=== PATIENT | female | born 1950 | race Caucasian/White ===

== ENCOUNTER → 2017-01-11 | Outpatient (CLI) | payer OTHER, BC ==
[~2017-01-11] MED LIST: ASPI81TA28 PO; ATEN-173 PO; EFFSR75 PO; MELA1TAB5 PO; MULT-506 PO; SIMV40TA2 PO
--- NOTE | 2017-01-11 12:43 | MAMMOGRAPHY REPORT ---
BILATERAL DIGITAL SCREENING MAMMOGRAM WITH CAD: 01/11/2017 CLINICAL HISTORY: Routine screening. TECHNIQUE: Bilateral CC and MLO views were obtained. Current study was also evaluated with a Computer Aided Detection (CAD) system. COMPARISON: Comparison is made to exams dated: 01/06/2016 mammogram, 01/04/2015 mammogram, 12/31/2013 ma mmogram, 12/30/2012 mammogram, 12/28/2011 mammogram, and 12/26/2010 mammogram - [facility] nter. BREAST COMPOSITION: There are scattered areas of fibroglandular density in both breasts. FINDINGS: There are scattered benign-appearing round and ulises like calcifications in the breasts. No suspicious mass, architectural distortion or cluster of suspicious microcalcifications is seen. IMPRESSION: ACR BI-RADS CATEGORY 1: NEGATIVE There is no mammographic evidence of malignancy. A 1 year screening mammogram is recommended. The pa tient will receive written notification of the results. Approximately 10% of breast cancers are not detected with mammography. A negative mammographic report should not delay biopsy if a clinically suggestive mass is present. Loreto Hitchcock M.D. ay/:01/11/2017 09:37:49 Necktie Maker: Rosalia SALAZAR(Jennifer)(Rianna), [facility] letter sent: Normal 1/2 BI-RADS Code: ACR BI-RADS Category 1: Negative
== END | disposition home or self-care (01) ==
LOC: C.MAMM 08:59
PROVIDERS: ATTEND Family Medicine
DX: Z12.31 Encounter for screening mammogram for malignant neoplasm of breast (principal)

== ENCOUNTER 2017-06-01 08:50 | Inpatient (IN) | payer OTHER, BC ==
[2017-05-04 09:44] VITALS: Ht 165.1 cm; Wt 86.5 kg
--- NOTE | 2017-05-04 10:20 | PAT Medication Instructions ---
Service Date May 04, 2017. Current Home Medication List Ascorbic Acid (Vitamin C), 500 MG PO QAM Aspirin (Aspirin Ec), 81 MG PO QAM Atenolol (Tenormin), 25 MG PO QPM Docusate Sodium (Docusate Sodium), 2 CAP PO QPM Hydrocodone/Acetaminophen 5MG/325MG (Mora 5MG/325MG), 1 TABLET PO Q4-6H PRN for Pain Melatonin ( Melatonin), 1 TAB PO HS Multivitamin (Multivitamin), 1 TAB PO QAM Naproxen (Aleve), 220 MG PO BID Simvastatin (Zocor), 40 MG PO HS Venlafaxine Hcl (Effexor Extended Rel), 75 MG PO QPM Vitamin E (Alph-E), 400 UNITS PO QAM [Osteo Matrix], 2 TAB PO QAM Medication Instructions For Your Scheduled Surgery - Hold the following medications 2 weeks prior to surgery: Vitamin E (Alph-E), 400 UNITS PO QAM [Osteo Matrix], 2 TAB PO QAM - Hold the following medications 7 days prior to surgery per surgeon's instructions: Naproxen (Aleve), 220 MG PO BID - Hold the following medications the morning of surgery: Ascorbic Acid (Vitamin C), 500 MG PO QAM Multivitamin (Multivitamin), 1 TAB PO QAM - Take the following medications the morning of surgery with a sip of water OTHERWISE NOTHING TO EAT OR DRINK AFTER MIDNIGHT: Hydrocodone/Acetaminophen 5MG/325MG (Mora 5MG/325MG), 1 TABLET PO Q4-6H PRN for Pain (may take if needed up to 4 hours prior to surgery) Aspirin (Aspirin Ec), 81 MG PO QAM - Take the following medications as scheduled the night before surgery: Melatonin ( Melatonin), 1 TAB PO HS Atenolol (Tenormin), 25 MG PO QPM Simvastatin (Zocor), 40 MG PO HS Venlafaxine Hcl (Effexor Extended Rel), 75 MG PO QPM Docusate Sodium (Docusate Sodium), 2 CAP PO QPM Hydrocodone/Acetaminophen 5MG/325MG (Mora 5MG/325MG), 1 TABLET PO Q4-6H PRN for Pain If you have any questions please call us at [phone] or [phone] or [phone]
--- NOTE | 2017-05-04 10:56 | DIAGNOSTIC IMAGING REPORT ---
TWO VIEW CHEST CLINICAL HISTORY: Preoperative examination. FINDINGS: PA and lateral chest radiographs are compared to study dated 03/04/2015. The cardiomediastinal silhouette is unremarkable. There is atherosclerotic calcification of the thoracic aorta. Tiny calcified granulomas are noted in the right lung base. The lungs and pleural spaces are otherwise clear. There is no pneumothorax. The skeletal structures appear osteopenic. The bony thorax appears intact. IMPRESSION: No active disease in the chest. Electronically signed by: Epi Ackerman M.D. 05/04/2017 10:55 AM Dictated Date/Time: 05/04/2017 10:54 AM
[2017-05-04 11:28] LABS: BASO % 0.5 %; BASO ABS # 0.03 K/uL (0-0.2); EOS % 5.4 %; HEMATOCRIT 42.2 % (37-47); HEMOGLOBIN 13.7 g/dL (12.0-16.0); IG# 0.01 K/uL (0.00-0.02); LYMPH % 29.4 %; LYMPH ABS # 1.63 K/uL (1.2-3.4); MEAN CELL VOLUME 90.9 fL (80-100); MEAN CORPUSCULAR HEMOGLOBIN 29.5 pg (25-34); MEAN CORPUSCULAR HGB CONC 32.5 g/dl (32-36); MEAN PLATELET VOLUME 9.7 fL (7.4-10.4); MONO % 10.1 %; MONO ABS # 0.56 K/uL (0.11-0.59); NEUT % 54.4 %; NEUT ABS # 3.02 K/uL (1.4-6.5); PLATELET COUNT 336 K/uL (130-400); RED CELL DISTRIBUTION WIDTH CV 14.6 % (11.5-14.5); RED CELL DISTRIBUTION WIDTH SD 48.9 fL (36.4-46.3); WHITE BLOOD COUNT 5.55 K/uL (4.8-10.8)
[2017-05-04 11:33] LABS: INR 0.9 (0.9-1.1); PTT PATIENT 24.1 SECONDS (21.0-31.0)
[2017-05-04 11:43] LABS: CALCIUM 9.6 mg/dl (8.5-10.1); CREATININE 0.72 mg/dl (0.60-1.20); POTASSIUM 4.2 mmol/L (3.5-5.1)
[2017-05-04 12:03] LABS: HEMOGLOBIN A1C 5.6 % (4.5-5.6)
--- NOTE | 2017-05-30 11:06 | History and Physical ---
History & Physical Date May 30, 2017. Chief Complaint right hip pain History of Present Illness The patient is a 67 year old female with complaints of right hip and groin pain. She had been treated conservatively for hip DJD but failed conservative management of injections, PT, NSAIDs. She is now being set up for a right hip replacement. Past Medical/Surgical History Medical Problems: (1) Anxiety (2) Kidney stone (3) HTN (4) Hypercholesterolemia (5) Back pain (6) Obesity Past Surgical hx: Pilonidal cyst, back surgery Social hx: Denies tobacco use Allergies Coded Allergies: Adhesives (Verified Adverse Reaction, Intermediate, REDNESS WITH BANDAIDS/ TAPE, 05/29/17) Hydromorphone (Verified Adverse Reaction, Intermediate, DELIRIUM,AMNESIA, 05/04/17) Tramadol (Verified Adverse Reaction, Intermediate, general malaise,NAUSEA VOMITING, 05/04/17) Home Medications Scheduled Ascorbic Acid (Vitamin C), 500 MG PO QAM Aspirin (Aspirin Ec), 81 MG PO QAM Atenolol (Tenormin), 25 MG PO QPM Docusate Sodium (Docusate Sodium), 2 CAP PO QPM Melatonin (Kp Melatonin), 1 TAB PO HS Multivitamin (Multivitamin), 1 TAB PO QAM Naproxen (Aleve), 220 MG PO BID Simvastatin (Zocor), 40 MG PO HS Venlafaxine Hcl (Effexor Extended Rel), 75 MG PO QPM Vitamin E (Alph-E), 400 UNITS PO QAM [Osteo Matrix], 2 TAB PO QAM Scheduled PRN Hydrocodone/Acetaminophen 5MG/325MG ([place] 5MG/325MG), 1 TABLET PO Q4-6H PRN for Pain Physical Examination Skin: warm/dry, no rash Eyes: normal inspection ENT: normal ENT inspection Head: normocephalic, atraumatic Neck: supple, no adenopathy, trachea midline Respiratory/Chest: lungs clear, normal breath sounds, no respiratory distress Cardiovascular: regular rate, rhythm Abdomen / GI: normal bowel sounds, non tender Extremities: + pertinent finding (Right hip: Antalgic right gait. Tender right groin. Painful PROM right hip. + JEREMÍAS right hip. Limited internal/external rotation.) Neurologic/Psych: no motor/sensory deficits, alert, oriented x 3 Diagnosis Right hip osteoarthritis Plan of Treatment Recommend a right hip total hip arthroplasty. All potential risks, benefits, complications, alternatives, and rehab have been discussed and the patient wishes to proceed. She will be scheduled for 06.01.17 with plan for ASA 81 mg BID x 30 days for DVT prophylaxis.
[2017-06-01] VITALS (8 sets, daily range): BP systolic 111–160; BP diastolic 73–90; PULSE 79–96; TEMP 36.4–36.8; O2SAT 93–97
[~2017-06-01] VITALS: Ht 165.1 cm; Wt 86.5 kg
[~2017-06-01 08:50] MED LIST changes: +ACETAMINOPHEN 500 MG TAB PO SCH; +ASCO1CAP3 PO; +BUPIVACAINE 0.5 % 5 MG/1 ML PF 10ML VIAL ONE; +CEFAZOLIN 2000MG IV PUSH 10 ML IV SCH; +CeleBREX 200 MG CAP PO SCH; +DEXAMETHASONE 4 MG TAB PO SCH; +DOCU100C31 PO; +FAMOTIDINE 20 MG TAB PO SCH; +GABAPENTIN 300 MG CAP PO SCH; +HYDR-5688 PO; +LACTATED RINGER'S 1000ML 1,000 ML IV SCH; +LACTATED RINGER'S 1000ML 500 ML IV SCH; +LACTATED RINGER'S 1000ML IV SCH; +METOCLOPRAMIDE HCL 10 MG TAB PO SCH; +NAPR1TAB9 PO; +OSTEO MATRIX PO; +ROPIVACAINE 5MG/ML 30 ML 150 MG, BUPIVACAINE 0.5% MPF INJ 30 ML, EpINEphrine HCL INJ 0.... INFIL SCH; +VITA400C28 PO
[2017-06-01] MEDS ORDERED: ONDANSETRON INJ 2 MG/ML 2 ML VIAL IV PRN ×2 (09:30→14:15)
[2017-06-01] MEDS ORDERED: EpHEDrine SULFATE INJ 50 MG/ML AMP IV PRN (09:30)
[2017-06-01] MEDS ORDERED: PHENYLEPHRINE 100MCG/ML 5ML SYR IV PRN (09:30)
[2017-06-01] MEDS ORDERED: ATROPINE SULFATE 0.1 MG/ML 5ML SYR IV PRN (09:30)
[2017-06-01] MEDS ORDERED: HYDROmorphone INJ 2 MG/ML SYR/VIAL IV PRN (09:30)
[2017-06-01] MEDS ORDERED: FENTANYL CITRATE INJ 50 MCG/1 ML 2 ML VIAL IV PRN (09:30)
[2017-06-01] MEDS ORDERED: MIDAZOLAM HCL 1 MG/ML 2ML VIAL ONE ×3 (10:15→12:53)
--- NOTE | 2017-06-01 10:32 | History & Physical Bridge Note ---
H&P Re-Evaluation Bridge Note: I have examined the patient, reviewed the History & Physical and in the interval since the performance of the History & Physical I have noted the following changes of clinical significance: No changes noted
[2017-06-01] MEDS: TRANEXAMIC ACID INJ 1,000 MG in SYRINGE 0 ML IV SCH ×2 (10:44→17:57)
[2017-06-01] MEDS ORDERED: BACITRACIN 50000 UNIT VIAL ONE (11:11)
[2017-06-01] MEDS: CEFAZOLIN 2000MG IV PUSH 10 ML IV SCH ×2 (11:30→11:33)
[2017-06-01] MEDS ORDERED: ORTHO JOINT ANESTHETIC ONE ×2 (11:49→11:56)
[2017-06-01] MEDS ORDERED: LIDOCAINE HCL 2% 2 ML VIAL (20MG/ML) ONE (11:51)
[2017-06-01] MEDS ORDERED: PROPOFOL IV EMULSION 10 MG/ML 20 ML VIAL IV ONE ×2 (11:51→13:30)
[2017-06-01] MEDS ORDERED: PHENYLEPHRINE 100MCG/ML 5ML SYR ONE (11:51)
[2017-06-01] MEDS ORDERED: POVIDONE-IODINE OP SOLN 30 ML BTL ONE (11:56)
[2017-06-01] MEDS ORDERED: KETAMINE HCL INJ 50 MG/ML 10 ML VIAL ONE (13:25)
[2017-06-01] MEDS ORDERED: SODIUM CHLORIDE 0.9% INJ 10 ML VIAL ONE (13:25)
[2017-06-01] MEDS ORDERED: FENTANYL CITRATE INJ 50 MCG/1 ML 2 ML VIAL ONE (13:25)
--- NOTE | 2017-06-01 14:03 | [facility] Post Operative Brief Note ---
Immediate Operative Summary Operative Date Jun 01, 2017. Pre-Operative Diagnosis Right hip Degenerative Joint Disease, Right Hip osteoarthritis Post-Operative Diagnosis Right hip Degenerative Joint Disease, Right Hip osteoarthritis Procedure(s) Performed Right Total Hip Arthroplasty- Press Fit Oziel Accolaenrique Surgeon Dr. Dahl Pediatric Surgeon Surgeon(s) Yoel Orellana PA-C, Rivera Narayanan PA-C Estimated Blood Loss 60ml Findings Consistent with Post-Op Diagnosis Specimens A) Right femoral head- bone & tissue Drains HV x 2 Anesthesia Type Spinal MAC (and Intraarticular OrthoMix) Complication(s) none Disposition Accompanied Pt To Recover: no Disposition: Recovery Room / PACU
[2017-06-01] MEDS ORDERED: ONDA8TAB6 PO (14:14)
[2017-06-01] MEDS ORDERED: ASPEC325 PO (14:14)
[2017-06-01] MEDS ORDERED: CLB200 PO (14:14)
[2017-06-01] MEDS ORDERED: OXYC1TAB3 PO (14:14)
[2017-06-01] MEDS ORDERED: ACET-24 PO (14:14)
[2017-06-01] MEDS ORDERED: MoRPHine SULFATE 2 MG/ML CARP IV PRN (14:15)
[2017-06-01] MEDS ORDERED: BISACODYL 10 MG SUPP PR PRN (14:15)
[2017-06-01] MEDS ORDERED: ZOLPIDEM TARTRATE 5 MG TAB PO PRN (14:15)
[2017-06-01] MEDS ORDERED: SOD PHOSPHATE/SOD BIPHOSPHATE ENEMA 132 ML BTL PR PRN (14:15)
[2017-06-01] MEDS ORDERED: MAGNESIUM HYDROXIDE SUSP 30 ML UDC PO PRN (14:15)
[2017-06-01] MEDS ORDERED: ALUMINUM/MAGNESIUM/SIMETH (MAALOX MAX) 30 ML UDC PO PRN (14:15)
--- NOTE | 2017-06-01 14:16 | Discharge Instructions ---
Discharge Instructions Date of Service Jun 01, 2017. Admission Reason for Admission: Right Hip Osteoarthritis Discharge Discharge Diagnosis / Problem: right hip osteoarthritis Discharge Goals Goal(s): Decrease discomfort, Improve function Activity Recommendations Activity Limitations: per Instructions/Follow-up section Weightbearing Status: Right weightbearing (as tolerated) . Instructions / Follow-Up Instructions / Follow-Up ACTIVITY RECOMMENDATIONS: SELF CARE INSTRUCTIONS AFTER TOTAL HIP REPLACEMENT Until the incision and soft tissues around your hip have healed, there is a possibility that the hip prosthesis could dislocate. A. Observe the following precautions to prevent dislocation: 1. Don't bend your hip greater than 90 degrees. 2. Avoid crossing your legs or ankles while standing or lying. 3. Sit with your feet placed 6 inches apart. 4. When sitting, keep your knees below your hips. Sit on a firm surface, avoid deep, soft chairs and couches. Use an elevated toilet seat in the bathroom. 5. Don't bend over at the waist. Use a long handled shoehorn and a sock aid to help you put on your shoes and socks. A cat and dog bather can help you picker packer objects that are too high or too low to reach. 6. Keep car riding to a minimum for at least one month after surgery. B. Your balance may be shaky for a while. Use crutches or a walker until directed by your doctor. C. Use hand rails when walking on stairs. D. Wear low heeled shoes with non-slip soles. E. Be sure that your floors are free of things that could trip you - throw rugs , electrical cords, small objects. Avoid wet and waxed floors, especially with crutches and canes. F. Try to walk several times a day with rest periods between. G. Continue with all the exercises taught to you in the hospital. Again, make walking a part of your daily routine. H. It is okay to shower if minimal to no drainage from incision. No baths. Do not soak wound. I. Physical Therapy as instructed by your Physician. Wendy Jacob- This is a large adhesive bandage that contains silver ions. This helps your incision heal by fighting off bacteria and protecting it from the outside environment. You are permitted to shower with this dressing. This will remain on your incision for 7 days and then should be removed. Some visible blood or drainage through the dressing window is normal. If there is significant drainage or leaking noted before the 7 days notify your doctor's office immediately. Once removed, keep incision clean and dry. If there is any drainage or redness noted, please call your surgeon. SPECIAL CARE INSTRUCTIONS: VERY IMPORTANT TO READ AND REVIEW A. You may still be at risk for phlebitis and blood clots. 1. Wear surgical stockings (GALLO hose) for one month, 20 hours daily, after surgery to improve circulation and reduce swelling. 2. Take Aspirin (blood thinning medications), as directed by your doctor. 3. Have a pro-time (blood test) drawn according to your doctor's instructions. B. We encourage and will assist you in choosing a home-health agency of your choice. Home health nurses and therapists will monitor your temperature, wound healing and progress in exercise and walking. Home health nurses may also draw the blood for the pro-time test. They may instruct you in decreasing or increasing the amount of Coumadin you take. C. You must take antibiotics before having dental work, bladder, bowel and other surgery. Your doctor will provide you with a permanent card to carry describing precautions. D. Call [facility] if you have a temperature of 101 or greater, redness or swelling around the incision, cloudy drainage from incision, or sudden increase in pain in your hip, not relieved by your regular pain medication. E. Please call the office at if you have any concerns or questions about your operation or recovery. FOLLOW UP VISIT: If appointment is not already scheduled: Please call [facility] to make a follow-up appointment for one month after your surgery at . Current Hospital Diet Patient's current hospital diet: Regular Diet Discharge Diet Recommended Diet: Regular Diet Procedures Procedures Performed: Right Total Hip Arthroplasty- Press Fit [place] Accolade Pending Studies Studies pending at discharge: no Laboratory Results Hemoglobin A1c Test 05/04/17 10:18 Range/Units Estimated Average Glucose 114 mg/dl Hemoglobin A1c 5.6 4.5-5.6 % Medical Emergencies . Who to Call and When: Medical Emergencies: If at any time you feel your situation is an emergency, please call 911 immediately. . Non-Emergent Contact Non-Emergency issues call your: Surgeon Call Non-Emergent contact if: temperature is above 101, your pain is not controlled, your pain is worsening, wound has increased drainage, wound has increased redness . "Provider Documentation" section prepared by Yoel Orellana. . VTE Core Measure Inpt VTE Proph given/why not?: Other Anticoagulation, T.E.D. Stockings, SCD's
--- NOTE | 2017-06-01 14:59 | DIAGNOSTIC IMAGING REPORT ---
R PELVIS/UNILATERAL HIP 1 VIEW CLINICAL HISTORY: IN PACU - A/P PELVIS and LATERAL HIP INCLUDING ALL OF IMPLANT COMPARISON: None. DISCUSSION: Anatomic alignment status post total right hip arthroplasty. Good contact between prosthetic and underlying bone. No evidence for acetabular protrusion. Expected soft tissue postoperative change. IMPRESSION: Anatomic alignment status post total right hip arthroplasty. The above report was generated using voice recognition software. It may contain grammatical, syntax or spelling errors. Electronically signed by: Patric Comer M.D. 06/01/2017 2:58 PM Dictated Date/Time: 06/01/2017 2:58 PM
--- NOTE | 2017-06-01 15:14 | OPERATIVE REPORT ---
DATE OF OPERATION: 06/01/2017 PREOPERATIVE DIAGNOSES: 1. Right hip degenerative joint disease. 2. Right hip osteoarthritis. POSTOPERATIVE DIAGNOSES: Same. PROCEDURE: Right total hip arthroplasty using a Calypso Press-Fit size 5 Accolade II stem with a Trident PSL 56-mm acetabular liner with 36-mm Biolox +0 head, a Trident X3 36-mm with 10-degree liner polyethylene and acetabular liner screws x2. SURGEON: Dr. Isaías Dahl. FORENSIC PHOTOGRAPHER: Yoel Orellana PA-C and Rivera Narayanan PA-C, who were present for patient positioning, sterile prep and drape, management of retractors and instruments. They were present through the critical portions of the case including wound closure, application of sterile dressing and transport of the patient to recovery. ANESTHESIA: Spinal, monitored anesthesia care with intra-articular Orthomix injection. SPECIMENS: Bone and tissue. DRAINS: Hemovac x2. COMPLICATIONS: None. BLOOD LOSS: 60 mL. PERTINENT HISTORY: This is a 67-year-old female who had chronic progressive and worsening right hip pain with loss of function and mobility over the last several years. She had attempted and failed conservative management including the use of an assistive device, intraarticular steroid injections, anti-inflammatories, physician directed home exercises, physical therapy and shoe wear modification. Radiographs demonstrated complete loss of joint space with marginal osteophytes, subchondral sclerosis and subchondral cyst formation. The patient was scheduled for surgery as indicated. All potential risks, benefits, complications, alternatives, rehab, potential for incomplete relief of symptoms, need for further surgery, DVT, PE, , persistent pain, swelling, scarring, weakness, neurovascular injury, wound complications and bone fracture were discussed with the patient. The patient decided to proceed with the procedure as indicated. DESCRIPTION OF PROCEDURE: The patient was taken to the Operating Suite and placed supine on the Operating Room table after identification of the consent and identification of the proper operative site the patient was sedated. The patient had previously received a spinal epidural anesthetic. The patient was then placed in the left lateral decubitus position with the affected side up and Stulberg positioning device then used to maintain lateral position of the patient. All bony prominences were properly padded and protected. Axillary roll was placed as standard and the leg lengths were determined to be essentially equal and then the right hip was then sterilely prepped and draped in the usual fashion. 10-blade scalpel incision was made laterally over the greater trochanter. The incision was deepened through the subcutaneous tissue and meticulous hemostasis with electrocautery. Further deepening of the wound through the layer of the fascia was performed with electrocautery and iliotibial band was then incised with electrocautery. Next, Charnley retractor was placed bother anteriorly and posteriorly at the level of the gluteus tendon. Next, electrocautery was used to make an incision in the vastus lateralis and then a sweep was made toward the anterior aspect of the patient along the course of the femoral neck and head. Abductor split was then completed. The gluteus minimus and capsule were then incised and then soft tissue was dissected anteriorly. Next as the soft tissue was dissected anteriorly the lesser trochanter was clearly identified and hip was dislocated with relative ease. Hypertrophic osteophytes were noted circumferentially. The hip joint was noted to be noticeably tight. Next the sagittal saw was used to resect the proximal portion of the femoral neck and head approximately one fingerbreadth proximal to the lesser trochanter. Head was then removed and next the labrum was excised from the acetabulum with a 22 blade scalpel and long forceps. Next the wound was irrigated with pulsatile lavage and the pulvinar was then excised from the acetabulum. Appropriate retractors were placed anteriorly superiorly and posteriorly. Next initial acetabular reamer was placed 46 mm medialized to the medial wall and then sequential reaming was performed to size 56 mm. Trial cage was then placed and noted to be stable with excellent fit. Next the wound was irrigated with pulsatile lavage with bacitracin additive and 56 mm Calypso trident PSL cup was impacted and then two 30 mm screws were used to stabilize the acetabular shell. Next X3 poly 36 mm was impacted into the shell. Lap sponge was placed over to protect it. Next, attention was turned toward the proximal femur. Box osteotome was used to resect proximal portion of bone followed by first pass small reamer. Next, sequential broaching was performed up to size 5 and the 5 trial was placed followed by +0 36 mm trial head. Next, it was reduced and had excellent fit and feel with minimal shuck and excellent stability in all planes and range of motion. Leg lengths were restored and next all trial implants were removed. The wound was copiously irrigated with pulsatile lavage and size 5 Accolade TMZF x 132 degree final stem was impacted. Next, Biolox ceramic 36 mm head +0 neck was impacted. The construct was reduced. Range of motion was performed and noted to be completely stable with excellent range of motion, improved to greater degree than prior to surgery. Dilute, sterile Betadine soak was performed for 3 minutes. Two 10 Brazilian single Hemovac drains were placed exiting anterolaterally. The wound was irrigated with a pulsatile lavage. Next a #5 Fiberwire suture was used to close the capsule and gluteus minimum via two small bone tunnels made with a 2.5 mm drill bit in the greater trochanter. After #5 Fiberwire closure was completed and noted to be stable, then 10 Brazilian drains were placed followed by closure of the vastus lateralis and the gluteus medius. This was closed with #1 Vicryl sutures. Next, the iliotibial band was closed using interrupted [id number] #1 Vicryl sutures. Next, final irrigation was performed with pulsatile lavage and dermis was closed using buried interrupted 2-0 Vicryl suture. The skin was closed with skin micha. Sterile compressive dressing was applied. The patient was then placed supine and taken to recovery in stable condition. I attest to the content of the Intraoperative Record and any orders documented therein. Any exceptions are noted below. EDINSON
--- NOTE | 2017-06-01 16:15 | Anesthesiology Progress Note ---
Anesthesia Post Op Note Date & Time Jun 01, 2017 at 16:15 Vital Signs Pain Intensity: 0 Vital Signs Past 12 Hours Date Time Temp Pulse Resp B/P (MAP) Pulse Ox O2 Delivery O2 Flow Rate FiO2 06/01/17 16:00 102/58 06/01/17 15:59 82 18 97 06/01/17 15:59 82 18 06/01/17 15:54 77 18 92 06/01/17 15:54 78 18 06/01/17 15:49 77 19 94 06/01/17 15:49 77 19 06/01/17 15:45 96/59 06/01/17 15:44 78 16 97 06/01/17 15:44 79 16 06/01/17 15:39 74 15 06/01/17 15:39 73 15 94 06/01/17 15:34 74 19 93 06/01/17 15:34 74 19 06/01/17 15:30 107/56 06/01/17 15:29 74 18 93 06/01/17 15:29 74 18 06/01/17 15:28 75 15 95 06/01/17 15:28 74 15 06/01/17 15:27 80 17 96 06/01/17 15:27 79 17 06/01/17 15:22 75 16 98 06/01/17 15:22 75 16 06/01/17 15:17 74 19 93 06/01/17 15:17 74 19 06/01/17 15:15 108/60 06/01/17 15:12 75 15 98 06/01/17 15:12 75 15 06/01/17 15:10 105/59 06/01/17 15:07 74 15 06/01/17 15:07 75 15 96 06/01/17 15:06 75 17 06/01/17 15:06 36.7 06/01/17 15:06 75 17 95 06/01/17 15:05 105/63 06/01/17 15:01 83 15 93 06/01/17 15:01 84 15 06/01/17 15:00 104/61 06/01/17 14:59 106/55 06/01/17 14:56 73 18 06/01/17 14:56 73 18 94 06/01/17 14:55 95/72 06/01/17 14:54 71 20 06/01/17 14:54 70 20 98 06/01/17 14:50 104/58 06/01/17 14:49 74 18 98 06/01/17 14:49 75 18 06/01/17 14:47 97/64 06/01/17 14:44 71 24 100 06/01/17 14:44 71 24 06/01/17 14:41 95/58 06/01/17 14:39 36.4 70 12 96/46 99 Nasal Cannula 2 06/01/17 14:39 75 15 96/46 96 06/01/17 14:39 76 15 06/01/17 09:10 36.8 79 16 160/79 96 Room Air Notes Mental Status: alert / awake / arousable, participated in evaluation Pt Amnestic to Procedure: Yes Nausea / Vomiting: adequately controlled Pain: adequately controlled Airway Patency, RR, SpO2: stable & adequate BP & HR: stable & adequate Hydration State: stable & adequate Anesthetic Complications: no major complications apparent
[2017-06-01] MEDS ORDERED: TRANEXAMIC ACID INJ 1,000 MG in SODIUM CHLORIDE 0.9% 100ML 100 ML IV ONE (18:00)
[2017-06-01] MEDS: D5W AND 1/2NSS + 20MEQ KCL 1,000 ML IV SCH (18:21)
[2017-06-01] MEDS: KETOROLAC TROMETHAMINE 15 MG/ML VIAL IV. SCH ×2 (18:22→23:27)
[2017-06-01] MEDS: CEFAZOLIN IV 2,000 MG in SYRINGE 0 ML IV SCH (20:40)
[2017-06-01] MEDS ORDERED: NON-FORMULARY MEDICATION (Melatonin (Kp Melatonin) 1 TAB) PO SCH (21:00)
[2017-06-01] MEDS ORDERED: DOCUSATE SODIUM 100 MG CAP PO SCH (21:00)
[2017-06-01] MEDS: SENNA 8.6 MG TAB PO SCH (21:17)
[2017-06-01] MEDS: ASPIRIN 325 MG ECTAB PO SCH (21:17)
[2017-06-01] MEDS: SIMVASTATIN 40 MG TAB PO SCH (21:17)
[2017-06-01] MEDS: VENLAFAXINE HCL XR 75 MG CAPXR PO SCH (21:17)
[2017-06-01] MEDS: DOCUSATE SODIUM 100 MG CAP PO SCH (21:17)
[2017-06-01] MEDS: ACETAMINOPHEN 500 MG TAB PO SCH (21:18)
[2017-06-01] MEDS: OXYCODONE HCL IR 5 MG TAB (IMMEDIATE RELEASE) PO PRN ×2 (21:27→22:18)
[2017-06-02] VITALS (8 sets, daily range): BP systolic 91–159; BP diastolic 48–83; PULSE 72–94; TEMP 36.4–36.9; O2SAT 94–98
[2017-06-02] MEDS: D5W AND 1/2NSS + 20MEQ KCL 1,000 ML IV SCH ×2 (02:41→12:51)
[2017-06-02] MEDS: CEFAZOLIN IV 2,000 MG in SYRINGE 0 ML IV SCH (03:56)
[2017-06-02] MEDS: OXYCODONE HCL IR 5 MG TAB (IMMEDIATE RELEASE) PO PRN ×2 (04:45→09:04)
[2017-06-02] MEDS: ACETAMINOPHEN 500 MG TAB PO SCH ×3 (05:39→21:21)
[2017-06-02] MEDS: KETOROLAC TROMETHAMINE 15 MG/ML VIAL IV. SCH ×2 (05:39→11:57)
[2017-06-02 06:04] LABS: BASO % 0.2 %; BASO ABS # 0.02 K/uL (0-0.2); HEMATOCRIT 32.8 % (37-47); HEMOGLOBIN 10.7 g/dL (12.0-16.0); IG# 0.03 K/uL (0.00-0.02); LYMPH % 13.8 %; LYMPH ABS # 1.54 K/uL (1.2-3.4); MEAN CELL VOLUME 89.9 fL (80-100); MEAN CORPUSCULAR HEMOGLOBIN 29.3 pg (25-34); MEAN CORPUSCULAR HGB CONC 32.6 g/dl (32-36); MONO % 10.1 %; MONO ABS # 1.13 K/uL (0.11-0.59); NEUT % 75.6 %; NEUT ABS # 8.43 K/uL (1.4-6.5); PLATELET COUNT 292 K/uL (130-400); RED CELL DISTRIBUTION WIDTH CV 14.1 % (11.5-14.5); RED CELL DISTRIBUTION WIDTH SD 46.4 fL (36.4-46.3); WHITE BLOOD COUNT 11.15 K/uL (4.8-10.8)
[2017-06-02 06:36] LABS: CALCIUM 8.4 mg/dl (8.5-10.1); CREATININE 0.67 mg/dl (0.60-1.20); POTASSIUM 4.1 mmol/L (3.5-5.1)
[2017-06-02] MEDS ORDERED: DEXAMETHASONE INJ 10 MG in SYRINGE 0 ML IV ONE (07:30)
[2017-06-02] MEDS: ASCORBIC ACID 500 MG TAB PO SCH (08:42)
[2017-06-02] MEDS: TOCOPHERYL, DL-ALPHA 100 INTERUNIT CAP PO SCH (08:42)
[2017-06-02] MEDS: ASPIRIN 325 MG ECTAB PO SCH ×3 (08:42→21:46)
[2017-06-02] MEDS: MULTIVITAMIN TAB PO SCH (08:42)
[2017-06-02] MEDS ORDERED: OSTEO MATRIX PO SCH (09:00)
--- NOTE | 2017-06-02 09:47 | Orthopedic Progress Note ---
Orthopedic Progress Note Date of Service Jun 02, 2017. Subjective Post OP Day: 1 Reports: feeling well, pain controlled w PO medications, Denies: chest pain, SOB , nausea / vomiting, light headedness, calf pain Objective calves soft nontender, N/V intact, hip located, capillary refill less than 2 sec., dressing C/D/I, A&O x3, toes mobile Date Time Temp Pulse Resp B/P (MAP) Pulse Ox O2 Delivery O2 Flow Rate FiO2 06/02/17 08:22 36.8 74 16 91/48 (62) 95 06/02/17 07:10 Room Air 06/02/17 03:27 36.9 78 18 121/69 (86) 97 Room Air 06/01/17 23:26 36.7 79 18 145/75 (98) 93 Room Air 06/01/17 23:15 Room Air 06/01/17 21:16 96 150/90 (110) 06/01/17 19:33 36.4 79 17 129/79 (96) 96 Room Air 06/01/17 18:00 36.6 87 16 158/81 (106) 97 Nasal Cannula 2.0 06/01/17 17:27 36.4 81 16 123/77 (92) 97 Nasal Cannula 3.0 06/01/17 17:00 36.6 18 121/74 (90) 97 Nasal Cannula 2.0 06/01/17 16:30 Nasal Cannula 2.0 06/01/17 16:30 Nasal Cannula 2.0 06/01/17 16:30 36.7 91 16 111/73 (86) 96 Nasal Cannula 2.0 06/01/17 16:25 36.9 06/01/17 16:21 83 17 94 06/01/17 16:21 84 17 06/01/17 16:16 83 18 92 06/01/17 16:16 83 18 06/01/17 16:15 98/60 06/01/17 16:11 81 20 93 06/01/17 16:11 81 20 06/01/17 16:06 80 13 94 06/01/17 16:06 80 13 06/01/17 16:01 87 14 96 06/01/17 16:01 88 14 06/01/17 16:00 102/58 06/01/17 15:59 82 18 97 06/01/17 15:59 82 18 06/01/17 15:54 77 18 92 06/01/17 15:54 78 18 06/01/17 15:49 77 19 94 06/01/17 15:49 77 19 06/01/17 15:45 96/59 06/01/17 15:44 78 16 97 06/01/17 15:44 79 16 06/01/17 15:39 74 15 06/01/17 15:39 73 15 94 06/01/17 15:34 74 19 93 06/01/17 15:34 74 19 06/01/17 15:30 107/56 06/01/17 15:29 74 18 93 06/01/17 15:29 74 18 06/01/17 15:28 75 15 95 06/01/17 15:28 74 15 06/01/17 15:27 80 17 96 06/01/17 15:27 79 17 06/01/17 15:22 75 16 98 06/01/17 15:22 75 16 06/01/17 15:17 74 19 93 06/01/17 15:17 74 19 06/01/17 15:15 108/60 06/01/17 15:12 75 15 98 06/01/17 15:12 75 15 06/01/17 15:10 105/59 06/01/17 15:07 74 15 06/01/17 15:07 75 15 96 06/01/17 15:06 75 17 06/01/17 15:06 36.7 06/01/17 15:06 75 17 95 06/01/17 15:05 105/63 06/01/17 15:01 83 15 93 06/01/17 15:01 84 15 06/01/17 15:00 104/61 06/01/17 14:59 106/55 06/01/17 14:56 73 18 06/01/17 14:56 73 18 94 06/01/17 14:55 95/72 06/01/17 14:54 71 20 06/01/17 14:54 70 20 98 06/01/17 14:50 104/58 06/01/17 14:49 74 18 98 06/01/17 14:49 75 18 06/01/17 14:47 97/64 06/01/17 14:44 71 24 100 06/01/17 14:44 71 24 06/01/17 14:41 95/58 06/01/17 14:39 36.4 70 12 96/46 99 Nasal Cannula 2 06/01/17 14:39 75 15 96/46 96 06/01/17 14:39 76 15 Laboratory Results 24 Hours: Test 06/02/17 05:27 White Blood Count 11.15 K/uL Red Blood Count 3.65 M/uL Hemoglobin 10.7 g/dL Hematocrit 32.8 % Mean Corpuscular Volume 89.9 fL Mean Corpuscular Hemoglobin 29.3 pg Mean Corpuscular Hemoglobin Concent 32.6 g/dl Platelet Count 292 K/uL Mean Platelet Volume 9.0 fL Neutrophils (%) (Auto) 75.6 % Lymphocytes (%) (Auto) 13.8 % Monocytes (%) (Auto) 10.1 % Eosinophils (%) (Auto) 0.0 % Basophils (%) (Auto) 0.2 % Neutrophils # (Auto) 8.43 K/uL Lymphocytes # (Auto) 1.54 K/uL Monocytes # (Auto) 1.13 K/uL Eosinophils # (Auto) 0.00 K/uL Basophils # (Auto) 0.02 K/uL Assessment & Plan Assessment: POD #1 right HERMELINDA Inhouse Planning Pain Management: Celebrex, PO Tylenol, Oxy IR DVT Prophylaxis: TEDs, SCDs, ASA Discharge Planning Discharge Planning: home with home health Pain Management: Celebrex, PO Tylenol, Oxy IR DVT Prophylaxis: TEDs, ASA Therapy: Physical Therapy
[2017-06-02] MEDS ORDERED: MELATONIN - ORDER AWAITING ACTION SCH (16:00)
[2017-06-02] MEDS ORDERED: MELATONIN 3 MG TAB PO SCH (21:00)
[2017-06-02] MEDS: CeleBREX 200 MG CAP PO SCH (21:20)
[2017-06-02] MEDS: SIMVASTATIN 40 MG TAB PO SCH (21:46)
[2017-06-02] MEDS: VENLAFAXINE HCL XR 75 MG CAPXR PO SCH (21:46)
[2017-06-02] MEDS: SENNA 8.6 MG TAB PO SCH (21:46)
[2017-06-02] MEDS: DOCUSATE SODIUM 100 MG CAP PO SCH (21:47)
[2017-06-03 05:36] VITALS: BP 144/82; PULSE 77; TEMP 36.8; O2SAT 97
[2017-06-03] MEDS: ACETAMINOPHEN 500 MG TAB PO SCH (06:02)
[2017-06-03] MEDS: ASCORBIC ACID 500 MG TAB PO SCH (07:28)
[2017-06-03] MEDS: TOCOPHERYL, DL-ALPHA 100 INTERUNIT CAP PO SCH (07:28)
[2017-06-03] MEDS: MULTIVITAMIN TAB PO SCH (07:29)
[2017-06-03] MEDS: CeleBREX 200 MG CAP PO SCH (08:01)
--- NOTE | 2017-06-03 08:32 | Orthopedic Progress Note ---
Orthopedic Progress Note Date of Service Jun 03, 2017. Subjective Post OP Day: 2 Reports: feeling well, pain controlled w PO medications, Denies: chest pain, SOB , nausea / vomiting, light headedness, calf pain Objective calves soft nontender, N/V intact, hip located, capillary refill less than 2 sec., dressing C/D/I (prevena), A&O x3, toes mobile Date Time Temp Pulse Resp B/P (MAP) Pulse Ox O2 Delivery O2 Flow Rate FiO2 06/03/17 05:36 36.8 77 18 144/82 (102) 97 Room Air 06/02/17 23:40 Room Air 06/02/17 23:20 36.7 72 18 132/74 (93) 96 Room Air 06/02/17 21:24 159/77 (104) 06/02/17 19:44 36.7 94 17 136/74 (94) 95 Room Air 06/02/17 15:28 36.4 81 16 151/75 (100) 97 Room Air 06/02/17 15:10 Room Air 06/02/17 11:59 36.6 83 16 130/70 (90) 94 Room Air 06/02/17 09:36 82 98 Assessment & Plan Assessment: POD #2 right HERMELINDA Plan: plan for discharge today with HH Inhouse Planning Pain Management: Celebrex, PO Tylenol, Oxy IR DVT Prophylaxis: TEDs SCDs, ASA Discharge Planning Discharge Planning: home with home health Pain Management: Celebrex, PO Tylenol, Oxy IR DVT Prophylaxis: TEDs, ASA Therapy: Physical Therapy
[2017-06-03 08:51] VITALS: BP 149/80; PULSE 78; O2SAT 98
[2017-06-03 09:06] VITALS: BP 144/82; PULSE 77; TEMP 36.8; O2SAT 97
[2017-06-03] MEDS: OXYCODONE HCL IR 5 MG TAB (IMMEDIATE RELEASE) PO PRN (10:26)
--- NOTE | 2017-06-04 08:23 | Discharge Summary ---
Orthopedic Discharge Summary Admission Date/Reason Jun 01, 2017 at 10:35 Right Hip Osteoarthritis. Discharge Date/Disposition Jun 03, 2017 Home with services Diagnosis Principal Diagnosis: right hip osteoarthritis Procedure(s) Performed : Right total hip arthroplasty using a [place] Press-Fit size 5 Accolade II stem with a Trident PSL 56-mm acetabular liner with 36-mm Biolox +0 head, a Trident X3 36-mm with 10-degree liner polyethylene and acetabular liner screws x2. Consultations None Medication Reconciliation New Medications: Aspirin (Aspirin) 325 Mg Ectab 325 MG PO Q12 for 30 Days Ondansetron Hcl (Zofran) 8 Mg Tab 8 MG PO Q8 PRN for Nausea, #20 TAB Oxycodone Immediate Rel Tab (Roxicodone Ir) 5 Mg Tab 1-2 TAB PO Q4H PRN for Severe Pain, #60 TAB Acetaminophen (Sb Non-Aspirin Extra Stre) 500 Mg Tab 1000 MG PO Q8, #120 TAB Celecoxib (Celebrex) 200 Mg Cap 200 MG PO Q12, #60 CAP Continued Medications: Ascorbic Acid (Vitamin C) 500 Mg Cap 500 MG PO QAM Atenolol (Tenormin) 25 Mg Tab 25 MG PO QPM, TAB Docusate Sodium (Docusate Sodium) 100 Mg Cap 2 CAP PO QPM for 7 Days, CAP Melatonin (Kp Melatonin) 3 Mg Tab 1 TAB PO HS for 30 Days, #30 TAB Multivitamin (Multivitamin) Tab 1 TAB PO QAM, TAB Simvastatin (Zocor) 40 Mg Tab 40 MG PO HS, TAB Venlafaxine Hcl (Effexor Extended Rel) 75 Mg Capcr 75 MG PO QPM Vitamin E (Alph-E) 400 Unit Cap 400 UNITS PO QAM [Osteo Matrix] () 2 TAB PO QAM Discontinued Medications: Aspirin (Aspirin Ec) 81 Mg Tab 81 MG PO QAM Hydrocodone/Acetaminophen 5MG/325MG ([place] 5MG/325MG) Tab 1 TABLET PO Q4-6H PRN for Pain, TAB PRN PAIN Naproxen (Aleve) 220 Mg Tab 220 MG PO BID, TAB Admission Physical Exam As per Admitting History & Physical. Hospital Course The patient was admitted on 06.01.17 and underwent the above noted procedure. On POD #1 her pain was controlled and she did well with ambulation and PT. Her Prevena dressing was in place and functioning well. On POD #2, her pain continued to be controlled and she was ambulating well. She was then d/c'd home later that day. Discharge Instructions Please refer to the electronic Patient Visit Report (Discharge Instructions) for additional information. ACTIVITY RECOMMENDATIONS: SELF CARE INSTRUCTIONS AFTER TOTAL HIP REPLACEMENT Until the incision and soft tissues around your hip have healed, there is a possibility that the hip prosthesis could dislocate. A. Observe the following precautions to prevent dislocation: 1. Don't bend your hip greater than 90 degrees. 2. Avoid crossing your legs or ankles while standing or lying. 3. Sit with your feet placed 6 inches apart. 4. When sitting, keep your knees below your hips. Sit on a firm surface, avoid deep, soft chairs and couches. Use an elevated toilet seat in the bathroom. 5. Don't bend over at the waist. Use a long handled shoehorn and a sock aid to help you put on your shoes and socks. A technical project lead can help you mixing picker tender objects that are too high or too low to reach. 6. Keep car riding to a minimum for at least one month after surgery. B. Your balance may be shaky for a while. Use crutches or a walker until directed by your doctor. C. Use hand rails when walking on stairs. D. Wear low heeled shoes with non-slip soles. E. Be sure that your floors are free of things that could trip you - throw rugs , electrical cords, small objects. Avoid wet and waxed floors, especially with crutches and canes. F. Try to walk several times a day with rest periods between. G. Continue with all the exercises taught to you in the hospital. Again, make walking a part of your daily routine. H. It is okay to shower if minimal to no drainage from incision. No baths. Do not soak wound. I. Physical Therapy as instructed by your Physician. J. Instruction booklet for the Prevena dressing would have been given from the chart for care. Prevena- This is a large suction dressing covering your incision. This will help pull any excess drainage from the wound and allow your incision to heal properly. You may shower with this if you can keep the unit outside of the shower. If any bleeding or leakage is noted please call your doctor's office. This will remain on your incision for 7 days and then should be removed. This can be done yourself or by the home nursing staff if applicable. The entire unit is disposable once removed. Once removed, keep incision clean and dry. If redness or drainage is noted, please call your surgeon. SPECIAL CARE INSTRUCTIONS: VERY IMPORTANT TO READ AND REVIEW A. You may still be at risk for phlebitis and blood clots. 1. Wear surgical stockings (GALLO hose) for one month, 20 hours daily, after surgery to improve circulation and reduce swelling. 2. Take Coumadin, Xarelto, Lovenox or Aspirin (blood thinning medications), as directed by your doctor. 3. Have a pro-time (blood test) drawn according to your doctor's instructions. B. We encourage and will assist you in choosing a home-health agency of your choice. Home health nurses and therapists will monitor your temperature, wound healing and progress in exercise and walking. Home health nurses may also draw the blood for the pro-time test. They may instruct you in decreasing or increasing the amount of Coumadin you take. C. You must take antibiotics before having dental work, bladder, bowel and other surgery. Your doctor will provide you with a permanent card to carry describing precautions. D. Call [facility] if you have a temperature of 101 or greater, redness or swelling around the incision, cloudy drainage from incision, or sudden increase in pain in your hip, not relieved by your regular pain medication. E. Please call the office at if you have any concerns or questions about your operation or recovery. FOLLOW UP VISIT: If appointment is not already scheduled: Please call [facility] to make a follow-up appointment for one month after your surgery at .
== END 2017-06-03 11:48 | disposition home health service (06) | DRG 470 ==
LOC: C.ACU 08:50 → C.3E 10:35 → ENRESERV 16:08
PROVIDERS: ADMIT Orthopaedic Surgery Sports Medicine; ATTEND Orthopaedic Surgery Sports Medicine
PROC: 0SRA00Z Replacement of Right Hip Joint, Acetabular Surface with Polyethylene Synthetic Substitute, Open Approach (ICD-10-PCS; principal; 2017-06-01 10:50)
DX: M16.11 Unilateral primary osteoarthritis, right hip (principal); F41.9 Anxiety disorder, unspecified; I10 Essential (primary) hypertension; E78.00 Pure hypercholesterolemia, unspecified; E66.9 Obesity, unspecified; Z79.82 Long term (current) use of aspirin; Z87.442 Personal history of urinary calculi; Z68.31 Body mass index [BMI] 31.0-31.9, adult